=== PATIENT | male | born 1965 | race African-American/Black ===

== ENCOUNTER 2020-04-27 10:49 | Emergency (ER) | payer MEDICAID ==
[~2020-04-27] VITALS: Ht 172.7 cm; Wt 99.3 kg
[2020-04-27 10:54] VITALS: Ht 172.7 cm; Wt 99.3 kg
[2020-04-27 12:24] VITALS: BP 155/89
== END 2020-04-27 12:24 | disposition home or self-care (01) ==
LOC: ED 10:49
DX: K64.9 Unspecified hemorrhoids (principal)